=== PATIENT | male | born 1995 | race Asian ===

== ENCOUNTER 2020-02-29 20:43 | Emergency (ER) | payer OTHER ==
[~2020-02-29] VITALS: Ht 167.6 cm; Wt 72.7 kg
[2020-02-29 21:00] VITALS: BP 125/71
== END 2020-02-29 22:14 | disposition home or self-care (01) ==
LOC: EMS 20:49
DX: T18.198A Other foreign object in esophagus causing other injury, initial encounter (principal); X58.XXXA Exposure to other specified factors, initial encounter; Y93.89 Activity, other specified; Y92.89 Other specified places as the place of occurrence of the external cause; Y99.8 Other external cause status
CPT/HCPCS: Z7502